=== PATIENT | male | born 1945 | race Caucasian/White ===

== ENCOUNTER 2018-12-17 00:27 | Emergency (ER) | payer OTHER ==
[~2018-12-17] VITALS: Ht 175.3 cm; Wt 95.3 kg
[~2018-12-17 00:27] MED LIST: ACYCLOVIR 400400 MG PO; ARICEPT10 M1 PO; ATENOLOL 100MG100 M2 PO; BUPROPION HCL150 MG PO; IBUPROFEN 400400 M1 PO; PERCOCET 5-3251 EACH PO; SEROQUEL 50 MG50 M1 PO; TRIAMTERENE-HC1 EAC3 PO; ZESTRIL10 MG PO; ZYLOPRIM300 MG PO
[2018-12-17 00:42] LABS: ABSOLUTE BASOPHILS 0.1 thou/uL (0.0-0.2); ABSOLUTE EOSINOPHILS 0.3 thou/uL (0.0-0.7); ABSOLUTE MONOCYTES 0.7 thou/uL (0.0-1.2); ABSOLUTE NEUTROPHILS 4.2 thou/uL (1.6-8.1); EOSINOPHILS 4.1 %; HEMATOCRIT 42.3 % (42.0-52.0); HEMOGLOBIN 14.2 gm/dL (14.0-18.0); LYMPHOCYTES 27.7 %; MCH 29.7 pg (26.0-34.0); MCHC 33.7 g/dL (28.0-37.0); MCV 88.1 fL (80.0-100.0); MONOCYTES 9.2 %; MPV 7.9 fl. (7.2-11.1); NUCLEATED RBCS 0 /100WBC; PLATELET COUNT* 250 thou/uL (150-400); RDW-CV 14.7 % (10.5-14.5); WBC 7.2 thou/uL (4.0-11.0)
[2018-12-17 01:19] LABS: CALCIUM 8.9 mg/dL (8.5-10.1); POTASSIUM 3.5 mmol/L (3.5-5.1)
[2018-12-17 01:23] LABS: ALBUMIN 3.4 g/dL (3.4-5.0); TOTAL BILIRUBIN 0.5 mg/dL (<0.1-1.0); TOTAL PROTEIN 7.5 g/dL (6.4-8.2)
[2018-12-17 01:28] LABS: URINE BILIRUBIN NEGATIVE (Negative); URINE BLOOD 2+ (Negative); URINE CLARITY CLEAR; URINE COLOR YELLOW; URINE GLUCOSE-RANDOM TRACE (Negative); URINE KETONES NEGATIVE (Negative); URINE LEUKOCYTES-REFLEX NEGATIVE (Negative); URINE NITRITE-REFLEX NEGATIVE (Negative); URINE PROTEIN TRACE (Negative); URINE UROBILINOGEN 0.2 E.U./dl (0.2-1.0)
[2018-12-17 02:08] LABS: CASTS None Seen /LPF (None Seen); URINE WBC-REFLEX None Seen /HPF (0-5)
[2018-12-17 02:09] LABS: BACTERIA-REFLEX 1-9 Few /HPF (None Seen); CRYSTALS None Seen /LPF (None Seen); SQUAMOUS 0-3 Few /LPF (0-3)
[2018-12-17] MEDS ORDERED: FLOMAX0.4 MG PO (02:28)
[2018-12-17] MEDS ORDERED: CIPROFLOXACIN500 M1 PO (02:28)
[2018-12-17] MEDS ORDERED: NORCO 5-325 TA1 EACH PO (02:28)
[2018-12-17 02:37] VITALS: BP 172/93
== END 2018-12-17 02:37 | disposition home or self-care (01) ==
LOC: M.ERS 00:27
PROVIDERS: Family Medicine
DX: N20.0 Calculus of kidney (principal); I10 Essential (primary) hypertension; M10.9 Gout, unspecified; F32.9 Major depressive disorder, single episode, unspecified; F03.90 Unspecified dementia, unspecified severity, without behavioral disturbance, psychotic disturbance, mood disturbance, and anxiety; Z90.49 Acquired absence of other specified parts of digestive tract

== ENCOUNTER 2021-05-25 12:42 | Inpatient (IN) | payer MEDICARE ==
[~2021-05-25] VITALS: Ht 177.8 cm; Wt 77.0 kg
[~2021-05-25 12:42] MED LIST changes: +CIPROFLOXACIN500 M1 PO; +FLOMAX0.4 MG PO; +NORCO 5-325 TA1 EACH PO
[2021-05-25 12:45] VITALS: BP 100/37
[2021-05-25] MEDS ORDERED: LOPRESSOR50 MG PO (12:52)
[2021-05-25] MEDS ORDERED: FLEXERIL PO (12:53)
[2021-05-25 13:12] LABS: ABSOLUTE BASOPHILS 0.1 thou/uL (0.0-0.2); ABSOLUTE EOSINOPHILS 0.3 thou/uL (0.0-0.7); ABSOLUTE LYMPHOCYTES 2.1 thou/uL (0.8-5.3); ABSOLUTE MONOCYTES 1.2 thou/uL (0.0-1.2); ABSOLUTE NEUTROPHILS 6.7 thou/uL (1.6-8.1); EOSINOPHILS 3.4 %; HEMATOCRIT 50.5 % (42.0-52.0); MCHC 33.7 g/dL (28.0-37.0); MCV 88.9 fL (80.0-100.0); MONOCYTES 11.2 %; MPV 8.2 fl. (7.2-11.1); NUCLEATED RBCS 0 /100WBC; PLATELET COUNT* 347 thou/uL (150-400); POLYS 64.4 %; RBC 5.68 mil/uL (4.50-6.00); WBC 10.3 thou/uL (4.0-11.0)
[2021-05-25 13:18] LABS: CALCIUM 9.6 mg/dL (8.5-10.1); CREATININE 2.4 mg/dL (0.6-1.3)
[2021-05-25 13:23] LABS: ALBUMIN 3.7 g/dL (3.4-5.0); TOTAL BILIRUBIN 1.4 mg/dL (<0.1-1.0)
--- NOTE | 2021-05-25 14:48 | EKG ---
[place] [address] ELECTROCARDIOGRAM REPORT Name: CRISTINA ST Room: [place] [address] [facility]#: [id number] Admission: 05/25/21 Attend Phys: Shar Bond Discharge: Date of : 43 Date of Service: 05/25/21 1308 Report #: [id number] THIS REPORT FOR: //name// [facility] ED Test Date: 2021-05-25 Test Time: 13:08:03 Pat Name: CRISTINA ST Department: Room: [facility] Gender: M [employer]: : 1945 Requested By: Oral Harper Order Number: [id number] MD: Kishan Vivar Measurements Intervals [place] Rate: 80 P: 0 NM: 68 QRS: 37 QRSD: 97 T: 53 QT: 444 QTc: 513 Interpretive Statements Sinus rhythm Short NM interval Low voltage, extremity leads Prolonged QT interval Baseline wander in lead(s) I,II,aVR No previous ECG available for comparison Electronically Signed On 05-25-2021 14:48:07 CDT by Kishan Vivar [email or web address] <ELECTRONICALLY SIGNED> By: Kishan Vivar MD, FACC 05/25/21 1448 1308 1308 Kishan Vivar MD, FACC /EPI
[2021-05-25 18:20] VITALS: BP 119/72
[2021-05-25 19:43] LABS: URINE BLOOD NEGATIVE (Negative); URINE CLARITY CLEAR; URINE COLOR DARK YELLOW; URINE GLUCOSE-RANDOM TRACE (Negative); URINE KETONES TRACE (Negative); URINE LEUKOCYTES-REFLEX NEGATIVE (Negative); URINE PROTEIN TRACE (Negative); URINE SPECIFIC GRAVITY 1.025 (1.005-1.030)
[2021-05-25 19:50] LABS: URINE BILIRUBIN 1+ (Negative); URINE NITRITE-REFLEX POSITIVE (Negative)
[2021-05-25 19:51] LABS: ICTOTEST (BILI CONFIRMATORY) Negative (Negative)
[2021-05-25 19:54] LABS: BACTERIA-REFLEX 1-9 Few /HPF (None Seen); CASTS None Seen /LPF (None Seen); CRYSTALS None Seen /LPF (None Seen); SQUAMOUS 0-3 Few /LPF (0-3); URINE RBC 0-2 Rare /HPF (0-2); URINE WBC-REFLEX 0-5 Rare /HPF (0-5)
[2021-05-25 22:11] VITALS: BP 109/62
[2021-05-26 00:43] VITALS: BP 98/48
[2021-05-26 04:52] VITALS: BP 127/71
[2021-05-26 08:00] VITALS: BP 127/52
[2021-05-26 11:12] LABS: CALCIUM 8.4 mg/dL (8.5-10.1); CREATININE 1.2 mg/dL (0.6-1.3); POTASSIUM 3.9 mmol/L (3.5-5.1)
[2021-05-26 11:49] VITALS: BP 96/42
[2021-05-26 15:39] VITALS: BP 102/60
[2021-05-27] VITALS: BP 116/64
[2021-05-27 04:49] VITALS: BP 138/73
[2021-05-27 04:49] LABS: CALCIUM 8.3 mg/dL (8.5-10.1); CREATININE 0.8 mg/dL (0.6-1.3); POTASSIUM 3.7 mmol/L (3.5-5.1)
[2021-05-27 08:49] VITALS: BP 110/73
[2021-05-27 12:00] VITALS: BP 111/74
[2021-05-27 13:59] VITALS: BP 111/74
[2021-05-27] MEDS ORDERED: CEFDINIR300 MG PO (14:08)
== END 2021-05-27 17:19 | DRG 689 ==
LOC: M.ERS 12:42 → M.2W 14:05 → M.TBA-ER 14:05 → M.2W 22:10
PROVIDERS: Family Medicine; ADMIT Internal Medicine; ATTEND Internal Medicine
DX: N39.0 Urinary tract infection, site not specified (principal); N17.0 Acute kidney failure with tubular necrosis; Z20.822 Contact with and (suspected) exposure to COVID-19; F32.9 Major depressive disorder, single episode, unspecified; M10.9 Gout, unspecified; F03.90 Unspecified dementia, unspecified severity, without behavioral disturbance, psychotic disturbance, mood disturbance, and anxiety; F17.210 Nicotine dependence, cigarettes, uncomplicated; I70.1 Atherosclerosis of renal artery; F12.90 Cannabis use, unspecified, uncomplicated; Z90.49 Acquired absence of other specified parts of digestive tract